=== PATIENT | female | born 1990 | race Caucasian/White ===

== ENCOUNTER → 2016-12-13 | Day surgery (SDC) | payer OTHER ==
[2016-12-09 09:24] VITALS: BMI 38.7
[~2016-12-13] MED LIST: LACTATED RINGERS 1,000 ML IV ONE; LIDOCAINE 1% 20 ML VIAL (10MG/ML) FOR IV START INTRADERMA ONE; LIDOCAINE 1% INJ 10MG/ML (20 ML MDV) ONE; PROPOFOL 10 MG/ML 20 ML VIAL IV ONE
[2016-12-13 08:09] VITALS: RESP 16; TEMP 98.2
[2016-12-13 08:27] LABS: Glucose,Whole Blood 88 mg/dL (75-99)
--- NOTE | 2016-12-13 09:01 | P.GSHP ---
History of Present Illness H&P Date: 12/13/16 Chief Complaint: Nausea, epigastric pain This is a 26-year-old female for penny Singh. Patient had complaints of nausea and epigastric pain. She presents today for EGD. Past Medical History Past Medical History: Diabetes Mellitus Additional Past Medical History / Comment(s): STATES HAVING PAIN IN STOMACH AND NAUSEA. History of Any Multi-Drug Resistant Organisms: None Reported Past Surgical History: Section, Tubal Ligation Past Anesthesia/Blood Transfusion Reactions: No Reported Reaction Past Psychological History: Anxiety, Bipolar, Depression Smoking Status: Current every day smoker Past Alcohol Use History: Occasional Additional Past Alcohol Use History / Comment(s): HX OF 2 PPD SMOKER, CURRENTLY 6 CIGARETTES /DAY., SMOKING FOR 12 YEARS. Past Drug Use History: None Reported - Past Family History Mother Family Medical History: No Reported History Medications and Allergies Home Medications Medication Instructions Recorded Confirmed Type ARIPiprazole [Abilify] 2 mg PO HS 12/09/16 12/13/16 History [place] Carbonate 300 mg PO HS 12/09/16 12/13/16 History buPROPion XL [Wellbutrin Xl] 150 mg PO DAILY 12/09/16 12/13/16 History lamoTRIgine [LaMICtal] 100 mg PO BID 12/09/16 12/13/16 History metFORMIN HCL [Glucophage] 1,000 mg PO TID-W/MEALS 12/09/16 12/13/16 History Allergies Allergy/AdvReac Type Severity Reaction Status Date / Time No Known Allergies Allergy Verified 12/13/16 08:09 Surgical - Exam Vital Signs Temp Pulse Resp BP Pulse Ox 98.2 F 77 16 120/65 95 12/13/16 08:08 12/13/16 08:08 12/13/16 08:08 12/13/16 08:08 12/13/16 08:08 - General well developed, no distress - Eyes PERRL - ENT normal pinna - Neck no masses - Respiratory normal expansion - Cardiovascular Rhythm: regular - Abdomen Abdomen: soft, non tender Assessment and Plan Plan: Nausea Epigastric pain We will perform EGD.
--- NOTE | 2016-12-13 09:05 | P.OP ---
Date of Procedure: 12/13/16 Preoperative Diagnosis: Epigastric pain Nausea Postoperative Diagnosis: Antral gastritis No evidence of hiatal hernia Mild esophagitis Procedure(s) Performed: EGD Anesthesia: MAC Surgeon: Jabari Boyd Pathology: other (Antrum, esophagus) Condition: stable Disposition: PACU Description of Procedure: Patient's placed on the endoscopy table in the lateral position. She received IV sedation. The gastroscope placed oropharynx passed in the esophagus into the stomach. The scope was then placed through the pylorus. The first and second portion of the duodenum appeared normal. The scope was then brought back the antrum and this appeared mildly inflamed. A biopsies performed. Scope was unretroflexed and remainder of the stomach appeared normal. The GE junction was at 40 cm. There is no evidence of a hiatal hernia. The distal esophagus appeared minimally inflamed a biopsies performed. The proximal esophagus appeared normal. Scope was withdrawn for patient.
[2016-12-13 09:43] VITALS: BP 128/78; PULSE 83
--- NOTE | 2016-12-13 15:03 | NM ---
Nuclear medicine hepatobiliary scan. HISTORY: Pain. DOSAGE: The patient received 8 ounces and sure plus and 5.5 mCi of Technetium 99m Choletec. FINDINGS: There is normal hepatic extraction. The gallbladder is seen by 20 minutes. Ejection fract ion is 89%. IMPRESSION: 1. Normal hepatobiliary exam 2. Ejection fraction of 89% which can be associated with hyperdynamic gallbladder. Correlate clinical ly.
== END ==
LOC: ORWHC2ENDO 07:50
PROVIDERS: ATTEND Surgery
DX: K29.50 Unspecified chronic gastritis without bleeding (principal); E11.9 Type 2 diabetes mellitus without complications; K20.9 Esophagitis, unspecified; F17.210 Nicotine dependence, cigarettes, uncomplicated; F41.9 Anxiety disorder, unspecified; F31.30 Bipolar disorder, current episode depressed, mild or moderate severity, unspecified; E66.9 Obesity, unspecified; Z68.38 Body mass index [BMI] 38.0-38.9, adult; Z79.84 Long term (current) use of oral hypoglycemic drugs; Z79.899 Other long term (current) drug therapy
CPT/HCPCS: 43239; 81025; 88305; 88342; 78226; A9537; J2001; J2704

== ENCOUNTER 2016-12-28 07:50 | Day surgery (SDC) | payer OTHER ==
[2016-12-26 14:38] VITALS: BMI 38.0
[~2016-12-28 07:50] MED LIST changes: +DEXAMETHASONE SOD PHOSPHATE 10 MG/ML 1 ML VIAL IV ONE; +HEPARIN SODIUM,PORCINE 5,000 UNIT/ML 1 ML VIAL SQ ONE; -LACTATED RINGERS 1,000 ML IV ONE; +LACTATED RINGERS 1,000 ML IV SCH; -LIDOCAINE 1% 20 ML VIAL (10MG/ML) FOR IV START INTRADERMA ONE; +LIDOCAINE 1% 20 ML VIAL (10MG/ML) FOR IV START INTRADERMA PRN; -LIDOCAINE 1% INJ 10MG/ML (20 ML MDV) ONE; +MIDAZOLAM 2 MG/2 ML VIAL IV PRN; -PROPOFOL 10 MG/ML 20 ML VIAL IV ONE; +SCOPOLAMINE 1.5MG/72HR PATCH TRANSDERM ONE; +ceFAZolin 2 GM in SODIUM CHLORIDE 0.9% 100 ML IVPB ONE
[2016-12-28 08:24] LABS: Glucose,Whole Blood 91 mg/dL (75-99)
[2016-12-28] MEDS: ONDANSETRON 4 MG/2 ML VIAL IVP ONE ×2 (08:24→11:02)
--- NOTE | 2016-12-28 09:33 | P.GSHP ---
History of Present Illness H&P Date: 12/28/16 Chief Complaint: Right upper quadrant pain This a 26-year-old female referred from Dr. Elizabeth Singh. Patient rents today for laparoscopic cholecystectomy. She's had complaints of upper quadrant pain. Her recent HIDA scan shows elevated ejection fraction of 89% consistent with biliary dyskinesia. Past Medical History Past Medical History: Diabetes Mellitus Additional Past Medical History / Comment(s): STATES HAVING PAIN IN STOMACH AND NAUSEA. History of Any Multi-Drug Resistant Organisms: None Reported Past Surgical History: Section, Tubal Ligation Additional Past Surgical History / Comment(s): EGD,ERCP Past Anesthesia/Blood Transfusion Reactions: No Reported Reaction Smoking Status: Current every day smoker - Past Family History Mother Family Medical History: No Reported History Medications and Allergies Home Medications Medication Instructions Recorded Confirmed Type ARIPiprazole [Abilify] 2 mg PO HS 12/09/16 12/28/16 History [place] Carbonate 300 mg PO HS 12/09/16 12/28/16 History buPROPion XL [Wellbutrin Xl] 150 mg PO DAILY 12/09/16 12/28/16 History lamoTRIgine [LaMICtal] 100 mg PO BID 12/09/16 12/28/16 History metFORMIN HCL [Glucophage] 1,000 mg PO TID-W/MEALS 12/09/16 12/28/16 History Allergies Allergy/AdvReac Type Severity Reaction Status Date / Time No Known Allergies Allergy Verified 12/26/16 14:33 Surgical - Exam Vital Signs Temp Pulse Resp BP Pulse Ox 98.1 F 78 16 121/73 97 12/28/16 08:02 12/28/16 08:02 12/28/16 08:02 12/28/16 08:02 12/28/16 08:02 - General well developed, no distress - Eyes PERRL - ENT normal pinna - Respiratory normal expansion - Cardiovascular Rhythm: regular - Abdomen Abdomen: soft, non tender Assessment and Plan Assessment: Right upper quadrant pain Abnormal HIDA scan We'll perform laparoscopic cholecystectomy.
[2016-12-28] MEDS ORDERED: MIDAZOLAM 2 MG/2 ML VIAL ONE (09:41)
[2016-12-28] MEDS ORDERED: SUCCINYLCHOLINE CHLORIDE 100 MG/5 ML SYR IV ONE (09:41)
[2016-12-28] MEDS ORDERED: fentaNYL (PF) 50 MCG/ML 2 ML AMP ONE (09:41)
[2016-12-28] MEDS ORDERED: PROPOFOL 10 MG/ML 20 ML VIAL IV ONE (09:41)
[2016-12-28] MEDS ORDERED: GLYCOPYRROLATE 0.2 MG/ML 2 ML VIAL ONE (09:41)
[2016-12-28] MEDS ORDERED: NEOSTIGMINE 1 MG/ML 10 ML VIAL ONE (09:41)
[2016-12-28] MEDS ORDERED: ROCURONIUM BROMIDE 10 MG/ML 10 ML VIAL IV ONE (09:41)
[2016-12-28] MEDS ORDERED: KETOROLAC 30 MG/ML 1 ML VIAL ONE (09:41)
[2016-12-28] MEDS ORDERED: BUPIVACAIN-EPI 0.5%-1:200,000 30 ML VIAL SQ ONE ×2 (10:03→10:19)
--- NOTE | 2016-12-28 10:36 | P.OP ---
Date of Procedure: 12/28/16 Preoperative Diagnosis: Chronic cholecystitis Postoperative Diagnosis: Chronic cholecystitis Procedure(s) Performed: Laparoscopic cholecystectomy Anesthesia: IRENE Surgeon: Jabari Boyd Estimated Blood Loss (ml): 5 Pathology: other (Gallbladder) Condition: stable Disposition: PACU Description of Procedure: The patient was placed on the operating table. The patient received a general endotracheal tube anesthesia. The patients abdomen was prepped and draped in the usual sterile fashion. Through an infraumbilical stab incision, the fascia of the anterior abdominal wall was grasped with a pair of Kochers and then the Veress needle was placed in the peritoneal cavity. Position of the Veress needle was confirmed with positive drop test. The abdomen was then insufflated. After adequate insufflation, the 10 mm trocar was placed in the peritoneal cavity. Following this the laparoscope was placed in the peritoneal cavity. The patient was placed in the head-up, right side up position and then a 5 mm trocar was placed in the right lateral and right subcostal position under direct visualization. A 8 mm trocar was placed in the epigastric position. The gallbladder was grasped in the fundus and infundibulum. Traction on the gallbladder was placed in the lateral and the cephalad positions. The triangle of Calot was visualized.. The cystic duct was bluntly dissected until the union of the cystic duct and common bile duct was seen. The cystic duct was then divided and sealed with the Harmonic scissors. A PDS Endoloop was then placed throughout the cystic duct stump. The cystic artery divided and sealed with the Harmonic scissors. The gallbladder was then removed from the liver bed using Harmonic scissors. The gallbladder was then extracted through the epigastric port site. Operative field was checked for any bleeding spots and Harmonic scissors was used to coagulate the liver bed. The abdomen was irrigated. The trocars were removed. The skin was closed using interrupted 3-0 Vicryl suture. Dermabond dressing were applied. The patient tolerated the procedure well.
[2016-12-28 10:55] VITALS: TEMP 97.4
[2016-12-28] MEDS: HYDROmorphone 0.5 MG/0.5 ML SYRINGE IVP PRN ×2 (11:02→11:08)
[2016-12-28] MEDS ORDERED: HYDROcodone/APAP 7.5-325MG 1 EACH TAB PO ONE (12:00)
[2016-12-28 13:06] VITALS: BP 105/70; PULSE 73; RESP 18
== END 2016-12-28 13:08 | disposition home or self-care (01) ==
LOC: OR 07:50
PROVIDERS: ATTEND Surgery
DX: K80.10 Calculus of gallbladder with chronic cholecystitis without obstruction (principal); E11.9 Type 2 diabetes mellitus without complications; Z98.51 Tubal ligation status; F31.9 Bipolar disorder, unspecified; F17.200 Nicotine dependence, unspecified, uncomplicated; Z79.84 Long term (current) use of oral hypoglycemic drugs; Z79.899 Other long term (current) drug therapy
CPT/HCPCS: 81025; 88304; 47562; J2250; J1644; J1100; J2710; J0690; J2405; J3010; J1885; J0330; J2704; J1170

== ENCOUNTER 2017-12-13 13:40 | Emergency (ER) | payer OTHER ==
[2017-12-13 13:56] VITALS: RESP 18; TEMP 98.2
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
[2017-12-13 15:15] VITALS: BP 114/62; PULSE 76
== END 2017-12-13 15:15 | disposition home or self-care (01) ==
LOC: EC 13:40
DX: S13.4XXA Sprain of ligaments of cervical spine, initial encounter (principal); R51 Headache; E11.9 Type 2 diabetes mellitus without complications; F41.9 Anxiety disorder, unspecified; F32.9 Major depressive disorder, single episode, unspecified; F17.200 Nicotine dependence, unspecified, uncomplicated; Z79.84 Long term (current) use of oral hypoglycemic drugs; Z79.899 Other long term (current) drug therapy; V89.2XXA Person injured in unspecified motor-vehicle accident, traffic, initial encounter; Y92.89 Other specified places as the place of occurrence of the external cause
CPT/HCPCS: 70450; 72125; 99284

== ENCOUNTER → 2018-12-13 | Outpatient (CLI) | payer OTHER ==
[2018-12-13 20:05] LABS: African American GFR (CKD) 115.5 (60.0-200.0); Lithium 0.2 mmol/L (0.5-1.2)
[2018-12-13 20:08] LABS: T4, Free (Free Thyroxine) 1.3 ng/dL (0.80-1.80)
== END | disposition home or self-care (01) ==
LOC: LABWHC1 08:57
PROVIDERS: ATTEND Psychiatry & Neurology Psychiatry
DX: F31.75 Bipolar disorder, in partial remission, most recent episode depressed (principal)
CPT/HCPCS: 36415; 80178; 82565; 84439; 84443; 84520

== ENCOUNTER 2023-07-03 06:51 | Emergency (ER) | payer OTHER ==
--- NOTE | 2023-07-03 07:31 | ED ---
Abdominal Pain HPI - General Chief Complaint: Abdominal Pain Stated Complaint: Kidney pain Time Seen by Provider: 07/03/23 07:03 Source: patient, RN notes reviewed Mode of arrival: ambulatory Limitations: no limitations - History of Present Illness Initial Comments: 32-year-old female presents emergency department chief complaint of left flank pain. Patient states that started suddenly few hours ago. Nothing makes pain feel better or worse. Patient states it is in front of her abdomen and back. She has no history of kidney stones denies any dysuria no hematuria no change in bowel habits including melena or hematochezia. She denies history of d iverticulitis. Patient denies fevers chest pain shortness of breath. Has had a prior cholecystectomy no other abdominal surgeries denies chance of . - Related Data Home Medications Medication Instructions Recorded Confirmed ARIPiprazole [Abilify] 2 mg PO HS 12/09/16 12/28/16 [place] Carbonate 300 mg PO HS 12/09/16 12/28/16 buPROPion XL [Wellbutrin Xl] 150 mg PO DAILY 12/09/16 12/28/16 lamoTRIgine [LaMICtal] 100 mg PO BID 12/09/16 12/28/16 metFORMIN HCL [Glucophage] 1,000 mg PO TID-W/MEALS 12/09/16 12/28/16 Previous Rx's Medication Instructions Recorded Docusate [Colace] 100 mg PO BID #20 capsule 12/28/16 HYDROcodone/APAP 7.5-325MG [[place] 1 each PO Q4H PRN #30 tab 12/28/16 7.5] Cephalexin [Keflex] 500 mg PO Q6HR #40 cap 07/03/23 Ibuprofen [Motrin] 600 mg PO Q8HR PRN #20 tab 07/03/23 Ondansetron Odt [Zofran Odt] 4 mg PO Q8HR PRN #10 tab 07/03/23 Allergies Allergy/AdvReac Type Severity Reaction Status Date / Time No Known Allergies Allergy Verified 07/03/23 07:12 Review of Systems ROS Statement: Those systems with pertinent positive or pertinent negative responses have been documented in the HPI. ROS Other: All systems not noted in ROS Statement are negative. Past Medical History Past Medical History: Diabetes Mellitus Additional Past Medical History / Comment(s): STATES HAVING PAIN IN STOMACH AND NAUSEA. History of Any Multi-Drug Resistant Organisms: None Reported Past Surgical History: Section, Tubal Ligation Additional Past Surgical History / Comment(s): EGD,ERCP Past Anesthesia/Blood Transfusion Reactions: No Reported Reaction Past Psychological History: Anxiety, Bipolar, Depression Smoking Status: Never smoker Past Alcohol Use History: Occasional Past Drug Use History: Marijuana - Past Family History Mother Family Medical History: No Reported History General Exam Limitations: no limitations General appearance: alert, in no apparent distress Head exam: Present: atraumatic, normocephalic, normal inspection Eye exam: Present: normal appearance, PERRL, EOMI. Absent: scleral icterus, conjunctival injection, periorbital swelling Respiratory exam: Present: normal lung sounds bilaterally. Absent: respiratory distress, wheezes, rales, rhonchi, stridor Cardiovascular Exam: Present: regular rate, normal rhythm, normal heart sounds. Absent: systolic murmur, diastolic murmur, rubs, gallop, clicks GI/Abdominal exam: Present: soft, tenderness, normal bowel sounds. Absent: distended, guarding, rebound, rigid Back exam: Present: CVA tenderness (L) (Minimal). Absent: CVA tenderness (R) Neurological exam: Present: alert Skin exam: Present: warm, dry, intact, normal color. Absent: rash Course Vital Signs 07/03/23 07/03/23 07:10 09:48 Temperature 99.1 F 98.1 F Pulse Rate 90 78 Respiratory 20 18 Rate Blood Pressure 134/85 131/67 O2 Sat by Pulse 96 98 Oximetry Medical Decision Making - Medical Decision Making Was pt. sent in by a medical professional or institution (, PA, REPRODUCTIVE SURGEON, urgent care, hospital, or long term...) When possible be specific @ -No Did you speak to anyone other than the patient for history (EMS, parent, family, police, friend...)? What history was obtained from this source @ -No Did you review nursing and triage notes (agree or disagree)? Why? @ -I reviewed and agree with nursing and triage notes Were old charts reviewed (outside hosp., previous admission, EMS record, old EKG, old radiological studies, urgent care reports/EKG's, long term records)? Report findings @ -No old charts were reviewed Differential Diagnosis (chest pain, altered mental status, abdominal pain women, abdominal pain men, vaginal bleeding, weakness, fever, dyspnea, syncope, headache, dizziness, GI bleed, back pain, seizure, CVA, palpatations, mental health, musculoskeletal)? @ -Differential Abdominal Pain Women: Appendicitis, Cholecystitis, diverticulosis, ischemic bowel, pancreatitis, hepatitis, UTI, gastroenteritis, AAA, incarcerated hernia, bowel obstruction, constipation, inflammatory bowel, hepatitis, peptic ulcer disease, splenic infarction, perforated viscus, vulvitis, ovarian torsion, PID, kidney stone, placenta abruption, this is not meant to be an all-inclusive list EKG interpreted by me (3pts min.). @ -None X-rays interpreted by me (1pt min.). @ -None done CT interpreted by me (1pt min.). @ -CT to the abdomen pelvis showing evidence of kidney stone in the left otherwise no obstructing or acute process U/S interpreted by me (1pt. min.). @ -None done What testing was considered but not performed or refused? (CT, X-rays, U/S, labs)? Why? @ -None What meds were considered but not given or refused? Why? @ -None Did you discuss the management of the patient with other professionals (professionals i.e. , PA, REPRODUCTIVE SURGEON, lab, RT, psych nurse, director of social work, block sawyer, teacher, bank operations officer, case advocate)? Give summary @ -No Was smoking cessation discussed for >3mins.? @ -No Was critical care preformed (if so, how long)? @ -No Were there social determinants of health that impacted care today? How? (Ho melessness, low income, unemployed, alcoholism, drug addiction, transportation, low edu. Level, literacy, decrease access to med. care, prison, rehab)? @ -No Was there de-escalation of care discussed even if they declined (Discuss DNR or withdrawal of care, Hospice)? DNR status @ -No What co-morbidities impacted this encounter? (DM, HTN, Smoking, COPD, CAD, Cancer, CVA, ARF, Chemo, Hep., AIDS, mental health diagnosis, sleep apnea, morbid obesity)? @ -None Was patient admitted / discharged? Hospital course, mention meds given and route, prescriptions, significant lab abnormalities, going to OR and other pertinent info. @ -Discharged patient pain is improved patient may have passed a stone she does have a stone that is nonobstructing patient agrees with plan discharge and close follow-up. Undiagnosed new problem with uncertain prognosis? @ -No Drug Therapy requiring intensive monitoring for toxicity (Heparin, Nitro, Insulin, Cardizem)? @ -No Were any procedures done? @ -No Diagnosis/symptom? @ -Left flank pain Acute, or Chronic, or Acute on Chronic? @ -Acute Uncomplicated (without systemic symptoms) or Complicated (systemic symptoms)? @ -Uncomplicated Side effects of treatment? @ -No Exacerbation, Progression, or Severe Exacerbation? @ -No Poses a threat to life or bodily function? How? (Chest pain, [place], [place], pneumonia, PE, COPD, DKA, ARF, appy, cholecystitis, CVA, Diverticulitis, Homicidal, Suicidal, threat to staff... and all critical care pts) @ -No - Lab Data Result diagrams: 07/03/23 07:50 07/03/23 07:50 Lab Results 07/03/23 07/03/23 07/03/23 Range/Units 07:50 07:50 07:50 WBC 17.3 H (3.8-10.6) k/uL RBC 4.58 (3.80-5.40) m/uL Hgb 14.6 (11.4-16.0) gm/dL Hct 43.3 (34.0-46.0) % MCV 94.4 (80.0-100.0) fL MCH 31.9 (25.0-35.0) pg MCHC 33.8 (31.0-37.0) g/dL RDW 11.8 (11.5-15.5) % Plt Count 307 (150-450) k/uL MPV 7.5 Neutrophils % 88 % Lymphocytes % 7 % Monocytes % 4 % Eosinophils % 0 % Basophils % 0 % Neutrophils # 15.1 H (1.3-7.7) k/uL Lymphocytes # 1.2 (1.0-4.8) k/uL Monocytes # 0.7 (0-1.0) k/uL Eosinophils # 0.0 (0-0.7) k/uL Basophils # 0.0 (0-0.2) k/uL Sodium (137-145) mmol/L Potassium (3.5-5.1) mmol/L Chloride (98-107) mmol/L Carbon Dioxide (22-30) mmol/L Anion Gap mmol/L BUN (7-17) mg/dL Creatinine (0.52-1.04) mg/dL Est GFR (CKD-EPI)AfAm (>60 ml/min/1.73 sqM) Est GFR (CKD-EPI)NonAf (>60 ml/min/1.73 sqM) Glucose (74-99) mg/dL Calcium (8.4-10.2) mg/dL Total Bilirubin (0.2-1.3) mg/dL AST (14-36) U/L ALT (4-34) U/L Alkaline Phosphatase (38-126) U/L Total Protein (6.3-8.2) g/dL Albumin (3.5-5.0) g/dL Lipase (23-300) U/L Urine Color Light Yellow Urine Appearance Cloudy H (Clear) Urine pH 7.0 (5.0-8.0) Ur Specific [place] 1.018 (1.001-1.035) Urine Protein Trace H (Negative) Urine Glucose (UA) Negative (Negative) Urine Ketones 2+ H (Negative) Urine Blood Trace H (Negative) Urine Nitrite Negative (Negative) Urine Bilirubin Negative (Negative) Urine Urobilinogen <2.0 (<2.0) mg/dL Ur Leukocyte Esterase Large H (Negative) Urine RBC 2 (0-5) /hpf Urine WBC 49 H (0-5) /hpf Urine WBC Clumps Few H (None) /hpf Ur Squamous Epith Cells 3 (0-4) /hpf Urine Bacteria Occasional H (None) /hpf Urine Mucus Rare H (None) /hpf Urine HCG, Qual Not Detected (Not Detectd) 07/03/23 Range/Units 07:50 WBC (3.8-10.6) k/uL RBC (3.80-5.40) m/uL Hgb (11.4-16.0) gm/dL Hct (34.0-46.0) % MCV (80.0-100.0) fL MCH (25.0-35.0) pg MCHC (31.0-37.0) g/dL RDW (11.5-15.5) % Plt Count (150-450) k/uL MPV Neutrophils % % Lymphocytes % % Monocytes % % Eosinophils % % Basophils % % Neutrophils # (1.3-7.7) k/uL Lymphocytes # (1.0-4.8) k/uL Monocytes # (0-1.0) k/uL Eosinophils # (0-0.7) k/uL Basophils # (0-0.2) k/uL Sodium 136 L (137-145) mmol/L Potassium 4.3 (3.5-5.1) mmol/L Chloride 103 (98-107) mmol/L Carbon Dioxide 26 (22-30) mmol/L Anion Gap 7 mmol/L BUN 9 (7-17) mg/dL Creatinine 0.71 (0.52-1.04) mg/dL Est GFR (CKD-EPI)AfAm >90 (>60 ml/min/1.73 sqM) Est GFR (CKD-EPI)NonAf >90 (>60 ml/min/1.73 sqM) Glucose 129 H (74-99) mg/dL Calcium 9.7 (8.4-10.2) mg/dL Total Bilirubin 0.7 (0.2-1.3) mg/dL AST 28 (14-36) U/L ALT 27 (4-34) U/L Alkaline Phosphatase 87 (38-126) U/L Total Protein 7.4 (6.3-8.2) g/dL Albumin 4.6 (3.5-5.0) g/dL Lipase 39 (23-300) U/L Urine Color Urine Appearance (Clear) Urine pH (5.0-8.0) Ur Specific [place] (1.001-1.035) Urine Protein (Negative) Urine Glucose (UA) (Negative) Urine Ketones (Negative) Urine Blood (Negative) Urine Nitrite (Negative) Urine Bilirubin (Negative) Urine Urobilinogen (<2.0) mg/dL Ur Leukocyte Esterase (Negative) Urine RBC (0-5) /hpf Urine WBC (0-5) /hpf Urine WBC Clumps (None) /hpf Ur Squamous Epith Cells (0-4) /hpf Urine Bacteria (None) /hpf Urine Mucus (None) /hpf Urine HCG, Qual (Not Detectd) Disposition Clinical Impression: Pyelonephritis Disposition: HOME SELF-CARE Condition: Stable Instructions (If sedation given, give patient instructions): Kidney Infection (ED) Additional Instructions: Please return to the Emergency Department if symptoms worsen or any other concerns. Prescriptions: Cephalexin [Keflex] 500 mg PO Q6HR #40 cap Ibuprofen [Motrin] 600 mg PO Q8HR PRN #20 tab PRN Reason: Pain Ondansetron Odt [Zofran Odt] 4 mg PO Q8HR PRN #10 tab PRN Reason: Nausea Is patient prescribed a controlled substance at d/c from ED?: No Referrals: Elizabeth Singh DO [Primary Care Provider] - 1-2 days Time of Disposition: 09:28
[2023-07-03] MEDS: ONDANSETRON 4 MG/2 ML VIAL IVP STA (07:46)
[2023-07-03] MEDS: SODIUM CHLORIDE 0.9% 500 ML 500 ML IV STA (07:47)
[2023-07-03] MEDS: SODIUM CHLORIDE 0.9% 1,000 ML IV STA (07:48)
[2023-07-03] MEDS: KETOROLAC 15 MG/ML 1 ML VIAL IVP STA (07:51)
[2023-07-03] MEDS: HYDROmorphone 0.5 MG/0.5 ML SYRINGE IVP STA (07:52)
[2023-07-03 08:09] LABS: Basophils % (A) 0 %; Eosinophils % (A) 0 %; HCT 43.3 % (34.0-46.0); HGB 14.6 gm/dL (11.4-16.0); Lymphocytes # (A) 1.2 k/uL (1.0-4.8); Lymphocytes % (A) 7 %; MCH 31.9 pg (25.0-35.0); MCHC 33.8 g/dL (31.0-37.0); MCV 94.4 fL (80.0-100.0); Mean Platelet Volume 7.5; Monocytes # (A) 0.7 k/uL (0-1.0); Monocytes % (A) 4 %; Neutrophils # (A) 15.1 k/uL (1.3-7.7); Neutrophils % (A) 88 %; Platelet Count 307 k/uL (150-450); RBC 4.58 m/uL (3.80-5.40); RDW 11.8 % (11.5-15.5); WBC 17.3 k/uL (3.8-10.6)
[2023-07-03 08:20] LABS: ALT 27 U/L (4-34); AST 28 U/L (14-36); African American GFR (CKD) >90 (>60 ml/min/1.73 sqM); Albumin 4.6 g/dL (3.5-5.0); Alkaline Phosphatase 87 U/L (38-126); Anion Gap 7 mmol/L; Blood Urea Nitrogen 9 mg/dL (7-17); Calcium 9.7 mg/dL (8.4-10.2); Carbon Dioxide 26 mmol/L (22-30); Chloride 103 mmol/L (98-107); Glucose 129 mg/dL (74-99); Lipase 39 U/L (23-300); Non-African American GFR(CKD) >90 (>60 ml/min/1.73 sqM); Potassium 4.3 mmol/L (3.5-5.1); Sodium 136 mmol/L (137-145); Total Bilirubin 0.7 mg/dL (0.2-1.3); Total Protein 7.4 g/dL (6.3-8.2)
[2023-07-03 08:24] LABS: Appearance,Urine Cloudy (Clear); Bacteria,Urine Occasional /hpf; Bilirubin,Urine Negative (Negative); Blood,Urine Trace (Negative); Color,Urine Light Yellow; Glucose,Urine (UA) Negative (Negative); Ketones,Urine 2+ (Negative); Leukocyte Esterase,Urine Large (Negative); Mucus,Urine Rare /hpf; Nitrite,Urine Negative (Negative); Protein,Urine Trace (Negative); RBC,Urine 2 /hpf (0-5); Specific Gravity,Urine 1.018 (1.001-1.035); Squamous Epithelial Cell,Urine 3 /hpf (0-4); Urobilinogen,Urine <2.0 mg/dL (<2.0); WBC,Urine 49 /hpf (0-5)
--- NOTE | 2023-07-03 09:09 | CT ---
EXAMINATION TYPE: CT abdomen pelvis w con DATE OF EXAM: 07/03/2023 COMPARISON: None HISTORY: 32-year-old female Left side abdominal pain with nausea since midnight TECHNIQUE: Contiguous axial scanning of the abdomen and pelvis following administration of 100 ml Iso rayo 300 IV contrast. Delayed images through the kidneys and coronal/sagittal reconstructions perform ed. CT DLP: 1849.6 mGycm Automated exposure control for dose reduction was used. FINDINGS: LUNG BASES: No significant abnormality is appreciated. LIVER/GB: Mildly enlarged at 18.4 cm with diminished attenuation. No focal lesion seen. Portal venous system is patent. No biliary ductal dilatation. Gallbladder surgically absent. PANCREAS: No significant abnormality is seen. SPLEEN: Enlarged at 15.0 cm measured on transverse series. ADRENALS: No significant abnormality is seen. KIDNEYS: There are a couple cysts measuring 4.7 and 1.1 cm and the left kidney. In addition, there is patchy inhomogeneous enhancement especially upper and mid left kidney. Minimal perinephric stranding on the left. Symmetric uptake and excretion of contrast from the kidneys without hydronephrosis. BOWEL: Some prominent fluid-filled small bowel loops right lower quadrant probably transient. Normal appendix. No significant stool burden. No pericolonic inflammatory change. LYMPH NODES: No greater than 1cm abdominal or pelvic lymph nodes are appreciated. PELVIS: Bladder only partially distended but with moderate circumferential wall thickening. Uterus an teverted. Left periuterine varices. Both ovaries are visualized. Trace pelvic free fluid. Multiple pe lvic phlebolith. No pelvic lymphadenopathy seen. OSSEOUS STRUCTURES: No significant abnormality is seen. OTHER: No significant additional abnormality is seen. IMPRESSION: 1. PATCHY INHOMOGENEOUS ENHANCEMENT UPPER AND MID LEFT KIDNEY WITH MINIMAL PERINEPHRIC STRANDING. COR RELATE FOR UNDERLYING PYELONEPHRITIS. AN INCIDENTAL 4.7 CM CYST OF THE LEFT KIDNEY. 2. MODERATE CIRCUMFERENTIAL BLADDER WALL THICKENING. CORRELATE TO EXCLUDE CYSTITIS. 3. HEPATOSPLENOMEGALY (LIVER 18.4 CM AND SPLEEN 15.0 CM). AT LEAST MILD HEPATIC STEATOSIS.
[2023-07-03] MEDS: cefTRIAXone IN SWFI 1,000 MG/10 ML SYRINGE IVP STA (09:44)
[2023-07-03] MEDS: ACET/COD 300 MG/30 MG STARTER PACK 6 TAB BTL PO STA (09:45)
[2023-07-03 09:53] VITALS: BP 131/67; PULSE 78; RESP 18; TEMP 98.1
== END 2023-07-03 09:49 | disposition home or self-care (01) ==
LOC: EC 06:51
DX: N20.0 Calculus of kidney (principal)
CPT/HCPCS: 36415; 80053; 83690; 85025; 81001; 81025; 74177; 99284; 96374; 96375 ×3; 96361; J2405; J0696; J1885; J1170; Q9967

== ENCOUNTER 2023-07-06 14:17 | Emergency (ER) | payer OTHER ==
[2023-07-06 14:44] VITALS: RESP 18
--- NOTE | 2023-07-06 15:10 | ED ---
General Adult HPI - General Chief complaint: Urogenital Stated complaint: blood in urine Time Seen by Provider: 07/06/23 14:35 Source: patient, RN notes reviewed Mode of arrival: ambulatory Limitations: no limitations - History of Present Illness Initial comments: This is a 32-year-old female who presents emergency department complaint of hematuria. Patient states that she was seen in the emergency department on 07/02 she was diagnosed with pyelonephritis and discharged home on an antibiotic and Zofran as needed. Patient states that she has noticed hematuria this morning and was instructed to follow up if she notices blood in her urine. Patient s tates that she had a fever last night of 100.2 degrees. She denies nausea, vomiting, abdominal pain, dysuria, back or flank pain. Patient has been cycling tyelnol and motrin at home with her last dose of tylenol yesterday evening and today a dose of motrin 650 at 1500. - Related Data Home Medications Medication Instructions Recorded Confirmed ARIPiprazole [Abilify] 2 mg PO HS 12/09/16 12/28/16 [place] 300 mg PO HS 12/09/16 12/28/16 buPROPion XL [Wellbutrin Xl] 150 mg PO DAILY 12/09/16 12/28/16 lamoTRIgine [LaMICtal] 100 mg PO BID 12/09/16 12/28/16 metFORMIN HCL [Glucophage] 1,000 mg PO TID-W/MEALS 12/09/16 12/28/16 Previous Rx's Medication Instructions Recorded Docusate [Colace] 100 mg PO BID #20 capsule 12/28/16 HYDROcodone/APAP 7.5-325MG [[place] 1 each PO Q4H PRN #30 tab 12/28/16 7.5] Cephalexin [Keflex] 500 mg PO Q6HR #40 cap 07/03/23 Ibuprofen [Motrin] 600 mg PO Q8HR PRN #20 tab 07/03/23 Ondansetron Odt [Zofran Odt] 4 mg PO Q8HR PRN #10 tab 07/03/23 Allergies Allergy/AdvReac Type Severity Reaction Status Date / Time No Known Allergies Allergy Verified 07/06/23 14:40 Review of Systems ROS Statement: Those systems with pertinent positive or pertinent negative responses have been documented in the HPI. ROS Other: All systems not noted in ROS Statement are negative. Past Medical History Past Medical History: Diabetes Mellitus Additional Past Medical History / Comment(s): STATES HAVING PAIN IN STOMACH AND NAUSEA. History of Any Multi-Drug Resistant Organisms: None Reported Past Surgical History: Section, Tubal Ligation Additional Past Surgical History / Comment(s): EGD,ERCP Past Anesthesia/Blood Transfusion Reactions: No Reported Reaction Past Psychological History: Anxiety, Bipolar, Depression Smoking Status: Never smoker Past Alcohol Use History: Occasional Past Drug Use History: Marijuana - Past Family History Mother Family Medical History: No Reported History General Exam Limitations: no limitations General appearance: alert, in no apparent distress Head exam: Present: atraumatic, normocephalic, normal inspection Eye exam: Present: normal appearance, PERRL, EOMI. Absent: scleral icterus, conjunctival injection, periorbital swelling ENT exam: Present: normal exam, mucous membranes moist Neck exam: Present: normal inspection. Absent: tenderness, meningismus, lymphadenopathy Respiratory exam: Present: normal lung sounds bilaterally. Absent: respiratory distress, wheezes, rales, rhonchi, stridor Cardiovascular Exam: Present: regular rate, normal rhythm, normal heart sounds. Absent: systolic murmur, diastolic murmur, rubs, gallop, clicks GI/Abdominal exam: Present: soft, tenderness (mild suprapubic), normal bowel sounds. Absent: distended, guarding, rebound, rigid Extremities exam: Present: normal inspection, full ROM, normal capillary refill. Absent: tenderness, pedal edema, joint swelling, calf tenderness Back exam: Present: normal inspection Neurological exam: Present: alert, oriented X3, CN II-XII intact Psychiatric exam: Present: normal affect, normal mood Skin exam: Present: warm, dry, intact, normal color. Absent: rash Course Vital Signs 07/06/23 07/06/23 07/06/23 14:35 16:13 16:30 Temperature 98.2 F 98.1 F Pulse Rate 77 72 Respiratory 18 18 Rate Blood Pressure 135/71 140/83 O2 Sat by Pulse 98 100 Oximetry Medical Decision Making - Medical Decision Making Was pt. sent in by a medical professional or institution (, PA, STUDENT ASSISTANT, urgent care, hospital, or intermediate...) When possible be specific @ -No Did you speak to anyone other than the patient for history (EMS, parent, family, police, friend...)? What history was obtained from this source @ -No Did you review nursing and triage notes (agree or disagree)? Why? @ -I reviewed and agree with nursing and triage notes Were old charts reviewed (outside hosp., previous admission, EMS record, old EKG, old radiological studies, urgent care reports/EKG's, intermediate records)? Report findings @ -Patient's previous laboratory results reviewed from 07/02 with elevated white blood cell count 17.3 and neutrophils of 15.1. Urinalysis remarkable for signs of infection. Patient CT scan reviewed and resulted with findings correlated with pyelonephritis. Differential Diagnosis (chest pain, altered mental status, abdominal pain women, abdominal pain men, vaginal bleeding, weakness, fever, dyspnea, syncope, headache, dizziness, GI bleed, back pain, seizure, CVA, palpatations, mental health, musculoskeletal)? @ -Differential Abdominal Pain Women: Appendicitis, Cholecystitis, diverticulosis, ischemic bowel, pancreatitis, hepatitis, UTI, gastroenteritis, AAA, incarcerated hernia, bowel obstruction, constipation, inflammatory bowel, hepatitis, peptic ulcer disease, splenic infarction, perforated viscus, vulvitis, ovarian torsion, PID, kidney stone, placenta abruption, this is not meant to be an all-inclusive list EKG interpreted by me (3pts min.). @ -none X-rays interpreted by me (1pt min.). @ -None done CT interpreted by me (1pt min.). @ -None done U/S interpreted by me (1pt. min.). @ -None done What testing was considered but not performed or refused? (CT, X-rays, U/S, labs)? Why? @ -None What meds were considered but not given or refused? Why? @ -None Did you discuss the management of the patient with other professionals (p rofessionals i.e. , PA, STUDENT ASSISTANT, lab, RT, psych nurse, criminal justice social worker, rotary soil stabilizer operator, teacher, chemical instrumentation officer, pillowcase folder)? Give summary @ -No Was smoking cessation discussed for >3mins.? @ -No Was critical care preformed (if so, how long)? @ -No Were there social determinants of health that impacted care today? How? (Homelessness, low income, unemployed, alcoholism, drug addiction, transportation, low edu. Level, literacy, decrease access to med. care, alf, rehab)? @ -No Was there de-escalation of care discussed even if they declined (Discuss DNR or withdrawal of care, Hospice)? DNR status @ -No What co-morbidities impacted this encounter? (DM, HTN, Smoking, COPD, CAD, Cancer, CVA, ARF, Chemo, Hep., AIDS, mental health diagnosis, sleep apnea, morbid obesity)? @ -None Was patient admitted / discharged? Hospital course, mention meds given and route, prescriptions, significant lab abnormalities, going to OR and other pertinent info. @ -Discharge. 32-year-old female with chief complaint of hematuria. On physical examination patient noted to have very mild send patient suprapubic region, bowel sounds normal there is no rigidity rebound tenderness noted. There is no noted CVA or flank pain on examination. Additionally patient denies nausea, vomiting, or fevers over the past few days. Patient given Tylenol for mild symptomatic relief. Additionally patient's laboratory results have mar kedly improved since previous on 07/02 revealing a nonelevated white blood cell count or increase in neutrophils. Patient's urinalysis still remarkable for signs of infection and elevated red blood cells. Patient's urine will be sent for culture and patient will be contacted if medications shall be switched. Recommend the patient continue on course of Keflex at home. Discussed strict return parameters. Spoke with Dr. Singh Undiagnosed new problem with uncertain prognosis? @ -No Drug Therapy requiring intensive monitoring for toxicity (Heparin, Nitro, Insulin, Cardizem)? @ -No Were any procedures done? @ -No Diagnosis/symptom? @ -peylonerhitis, hematuria Acute, or Chronic, or Acute on Chronic? @ -acute Uncomplicated (without systemic symptoms) or Complicated (systemic symptoms)? @ -uncomlicated Side effects of treatment? @ -No Exacerbation, Progression, or Severe Exacerbation? @ -No Poses a threat to life or bodily function? How? (Chest pain, [place], [place], pneumonia, PE, COPD, DKA, ARF, appy, cholecystitis, CVA, Diverticulitis, Homicidal, Suicidal, threat to staff... and all critical care pts) @ -No - Lab Data Result diagrams: 07/06/23 15:15 07/06/23 15:15 Lab Results 07/06/23 07/06/23 07/06/23 Range/Units 15:15 15:15 15:15 WBC 7.9 (3.8-10.6) k/uL RBC 4.24 (3.80-5.40) m/uL Hgb 13.2 (11.4-16.0) gm/dL Hct 40.4 (34.0-46.0) % MCV 95.4 (80.0-100.0) fL MCH 31.2 (25.0-35.0) pg MCHC 32.7 (31.0-37.0) g/dL RDW 11.7 (11.5-15.5) % Plt Count 349 (150-450) k/uL MPV 7.5 Neutrophils % 57 % Lymphocytes % 34 % Monocytes % 4 % Eosinophils % 2 % Basophils % 1 % Neutrophils # 4.5 (1.3-7.7) k/uL Lymphocytes # 2.7 (1.0-4.8) k/uL Monocytes # 0.3 (0-1.0) k/uL Eosinophils # 0.1 (0-0.7) k/uL Basophils # 0.0 (0-0.2) k/uL Sodium 141 (137-145) mmol/L Potassium 4.1 (3.5-5.1) mmol/L Chloride 109 H (98-107) mmol/L Carbon Dioxide 24 (22-30) mmol/L Anion Gap 8 mmol/L BUN 10 (7-17) mg/dL Creatinine 0.57 (0.52-1.04) mg/dL Est GFR (CKD-EPI)AfAm >90 (>60 ml/min/1.73 sqM) Est GFR (CKD-EPI)NonAf >90 (>60 ml/min/1.73 sqM) Glucose 87 (74-99) mg/dL Calcium 9.2 (8.4-10.2) mg/dL Total Bilirubin 0.3 (0.2-1.3) mg/dL AST 30 (14-36) U/L ALT 45 H (4-34) U/L Alkaline Phosphatase 99 (38-126) U/L Total Protein 6.7 (6.3-8.2) g/dL Albumin 4.0 (3.5-5.0) g/dL Urine Color Light Yellow Urine Appearance Cloudy H (Clear) Urine pH 6.5 (5.0-8.0) Ur Specific [place] 1.005 (1.001-1.035) Urine Protein 1+ H (Negative) Urine Glucose (UA) Negative (Negative) Urine Ketones Negative (Negative) Urine Blood Moderate H (Negative) Urine Nitrite Negative (Negative) Urine Bilirubin Negative (Negative) Urine Urobilinogen <2.0 (<2.0) mg/dL Ur Leukocyte Esterase Large H (Negative) Urine RBC 52 H (0-5) /hpf Urine WBC >182 H (0-5) /hpf Urine WBC Clumps Many H (None) /hpf Ur Squamous Epith Cells 4 (0-4) /hpf Urine Bacteria Few H (None) /hpf Urine Mucus Rare H (None) /hpf Urine HCG, Qual (Not Detectd) 07/06/23 Range/Units 15:32 WBC (3.8-10.6) k/uL RBC (3.80-5.40) m/uL Hgb (11.4-16.0) gm/dL Hct (34.0-46.0) % MCV (80.0-100.0) fL MCH (25.0-35.0) pg MCHC (31.0-37.0) g/dL RDW (11.5-15.5) % Plt Count (150-450) k/uL MPV Neutrophils % % Lymphocytes % % Monocytes % % Eosinophils % % Basophils % % Neutrophils # (1.3-7.7) k/uL Lymphocytes # (1.0-4.8) k/uL Monocytes # (0-1.0) k/uL Eosinophils # (0-0.7) k/uL Basophils # (0-0.2) k/uL Sodium (137-145) mmol/L Potassium (3.5-5.1) mmol/L Chloride (98-107) mmol/L Carbon Dioxide (22-30) mmol/L Anion Gap mmol/L BUN (7-17) mg/dL Creatinine (0.52-1.04) mg/dL Est GFR (CKD-EPI)AfAm (>60 ml/min/1.73 sqM) Est GFR (CKD-EPI)NonAf (>60 ml/min/1.73 sqM) Glucose (74-99) mg/dL Calcium (8.4-10.2) mg/dL Total Bilirubin (0.2-1.3) mg/dL AST (14-36) U/L ALT (4-34) U/L Alkaline Phosphatase (38-126) U/L Total Protein (6.3-8.2) g/dL Albumin (3.5-5.0) g/dL Urine Color Urine Appearance (Clear) Urine pH (5.0-8.0) Ur Specific [place] (1.001-1.035) Urine Protein (Negative) Urine Glucose (UA) (Negative) Urine Ketones (Negative) Urine Blood (Negative) Urine Nitrite (Negative) Urine Bilirubin (Negative) Urine Urobilinogen (<2.0) mg/dL Ur Leukocyte Esterase (Negative) Urine RBC (0-5) /hpf Urine WBC (0-5) /hpf Urine WBC Clumps (None) /hpf Ur Squamous Epith Cells (0-4) /hpf Urine Bacteria (None) /hpf Urine Mucus (None) /hpf Urine HCG, Qual Not Detected (Not Detectd) Disposition Clinical Impression: Hematuria, Pyelonephritis Narrative: Please return to the Emergency Department if symptoms worsen or any other concerns. Complete full course of antibiotics as prescribed. Disposition: HOME SELF-CARE Condition: Good Instructions (If sedation given, give patient instructions): Kidney Infection (ED) Is patient prescribed a controlled substance at d/c from ED?: No Referrals: Elizabeth Singh DO [Primary Care Provider] - 1-2 days Time of Disposition: 16:25
[2023-07-06 15:35] LABS: Basophils % (A) 1 %; Eosinophils # (A) 0.1 k/uL (0-0.7); Eosinophils % (A) 2 %; HCT 40.4 % (34.0-46.0); HGB 13.2 gm/dL (11.4-16.0); Lymphocytes # (A) 2.7 k/uL (1.0-4.8); Lymphocytes % (A) 34 %; MCH 31.2 pg (25.0-35.0); MCHC 32.7 g/dL (31.0-37.0); MCV 95.4 fL (80.0-100.0); Mean Platelet Volume 7.5; Monocytes # (A) 0.3 k/uL (0-1.0); Monocytes % (A) 4 %; Neutrophils # (A) 4.5 k/uL (1.3-7.7); Neutrophils % (A) 57 %; Platelet Count 349 k/uL (150-450); RBC 4.24 m/uL (3.80-5.40); RDW 11.7 % (11.5-15.5); WBC 7.9 k/uL (3.8-10.6)
[2023-07-06] MEDS: ACETAMINOPHEN TAB 500 MG TAB PO STA (15:40)
[2023-07-06 15:54] LABS: ALT 45 U/L (4-34); AST 30 U/L (14-36); African American GFR (CKD) >90 (>60 ml/min/1.73 sqM); Alkaline Phosphatase 99 U/L (38-126); Anion Gap 8 mmol/L; Blood Urea Nitrogen 10 mg/dL (7-17); Calcium 9.2 mg/dL (8.4-10.2); Carbon Dioxide 24 mmol/L (22-30); Chloride 109 mmol/L (98-107); Glucose 87 mg/dL (74-99); Non-African American GFR(CKD) >90 (>60 ml/min/1.73 sqM); Potassium 4.1 mmol/L (3.5-5.1); Sodium 141 mmol/L (137-145); Total Bilirubin 0.3 mg/dL (0.2-1.3); Total Protein 6.7 g/dL (6.3-8.2)
[2023-07-06 16:05] LABS: Appearance,Urine Cloudy (Clear); Bacteria,Urine Few /hpf; Bilirubin,Urine Negative (Negative); Blood,Urine Moderate (Negative); Color,Urine Light Yellow; Glucose,Urine (UA) Negative (Negative); Ketones,Urine Negative (Negative); Leukocyte Esterase,Urine Large (Negative); Mucus,Urine Rare /hpf; Nitrite,Urine Negative (Negative); PH, Urine 6.5 (5.0-8.0); Protein,Urine 1+ (Negative); RBC,Urine 52 /hpf (0-5); Specific Gravity,Urine 1.005 (1.001-1.035); Squamous Epithelial Cell,Urine 4 /hpf (0-4); Urobilinogen,Urine <2.0 mg/dL (<2.0); WBC,Urine >182 /hpf (0-5)
[2023-07-06 16:53] VITALS: BP 140/83; PULSE 72; TEMP 98.1
== END 2023-07-06 16:35 | disposition home or self-care (01) ==
LOC: EC 14:17
DX: N12 Tubulo-interstitial nephritis, not specified as acute or chronic (principal); R31.9 Hematuria, unspecified; F12.90 Cannabis use, unspecified, uncomplicated
CPT/HCPCS: 36415; 80053; 81001; 81025; 85025; 87086; 99284

== ENCOUNTER → 2023-07-21 | Outpatient (CLI) | payer BC ==
--- NOTE | 2023-07-25 20:38 | CT ---
EXAMINATION TYPE: CT urogram wo/w con CT DLP: 3837 mGycm, Automated exposure control for dose reduction was used. DATE OF EXAM: 07/21/2023 1:54 PM COMPARISON: . CT abdomen pelvis most recent from CLINICAL INDICATION:Female, 32 years old with history of R10.9,R31.9 HEMATURIA, UNSPECIFIED; [facility], lef t kidney infection, pain, hematuria, x3 weeks TECHNIQUE: Urogram with imaging of the abdomen and pelvis. Coronal and sagittal reformats were performed. 2D and 3D reconstructions are performed to assist visualization of the urinary tract on a separate workstat ion. Contrast used:100 mL of Isovue 300 with IV Contrast, Oral contrast used: None. Study quality: Distal thirds of the ureters are not opacified very well FINDINGS: LOWER CHEST: No significant findings. GENITOURINARY: RIGHT KIDNEY AND URETER: No calculi. No hydronephrosis or hydroureter. No solid renal mass or other l esions. No urothelial lesions: no filling defect, dilation, stricture or wall thickening. LEFT KIDNEY AND URETER: No calculi. No hydronephrosis or hydroureter. No solid renal mass or other le sions. No urothelial lesions: no filling defect, dilation, stricture or wall thickening. The distal thirds of the right and left ureters are not seen well. URINARY BLADDER: Adequately distended. Unremarkable otherwise. REPRODUCTIVE: Unremarkable. ABDOMEN LIVER: Unremarkable. GALLBLADDER AND BILE DUCTS: Unremarkable PANCREAS: Unremarkable. SPLEEN: Unremarkable. ADRENAL GLANDS: Unremarkable. STOMACH AND BOWEL: . No evidence of bowel obstruction. PERITONEUM: No evidence of pneumoperitoneum, free fluid, or adenopathy. VASCULATURE: No evidence of aortic aneurysm. MUSCULOSKELETAL: No acute osseous abnormalities LYMPH NODES: No gross evidence for lymphadenopathy. SOFT TISSUE/ABDOMINAL WALL: Unremarkable 3-D images confirm 2-D findings. IMPRESSION: 1. No evidence of urolithiasis or renal/urothelial neoplasm within limitations of exam.
== END | disposition home or self-care (01) ==
LOC: RADCTMAIN 12:52
PROVIDERS: ATTEND Family Medicine
DX: R10.9 Unspecified abdominal pain (principal); R31.9 Hematuria, unspecified; N12 Tubulo-interstitial nephritis, not specified as acute or chronic
CPT/HCPCS: 74178; 74400; Q9967

== ENCOUNTER → 2023-07-24 | Outpatient (CLI) | payer BC ==
--- NOTE | 2023-07-24 07:47 | MM ---
Reason for Exam: Clinical finding. Baseline mammogram. Indicated Problems: Lump or thickening of the right side (size 10) for 6 Month(s). Patient History: Menarche at age 12. First Full-Term at age 17. Patient has history of breast feeding. Last menstrual period: 07/11/2023 Prior Study Comparison: Patient's first Mammogram. Tissue Density: There are scattered areas of fibroglandular density. Findings: Analyzed By CAD. A few scattered benign round calcifications on both sides. 1.1 cm oval circumscribed mass upper outer quadrant left breast middle depth. The patient reports palpable abnormality along the medial aspect of the right breast. No underlying discrete abnormality is seen. No suspicious microcalcification. Overall Assessment: Incomplete: need additional imaging evaluation, BI-RAD 0 Management: Diagnostic Breast Ultrasound of both breasts. Electronically signed and approved by: Sedrick Kaplan M.D. Radiologist
--- NOTE | 2023-07-24 08:21 | USB ---
Reason for Exam: Clinical finding. Patient History: Menarche at age 12. First Full-Term at age 17. Patient has history of breast feeding. Technique: Method: Targeted. Findings: The upper outer quadrant of the left breast, the medial section of the breast of the right breast, the axilla of both breasts and the retroareolar of both breasts were scanned. Right: Targeted ultrasound medial aspect 12:00 to 6:00 including scanning of the subareolar region and axilla. * At the 2:00 position, 2 cm from the nipple, there is a 4 x 4 by 3 mm cyst with internal 2 mm nodular component, possible cyst with clumped of debris versus complex cyst. Six-month follow-up to reassess. * At the 3:00 position, 4 cm from the nipple, there is a benign 5 mm cyst. * No other solid or cystic lesion or axillary lymphadenopathy. Left: Targeted ultrasound upper outer quadrant 12:00 to 3:00 including scanning of the subareolar region and axilla. * At the 2:00 position, 9 cm from the nipple, there is an oval circumscribed 10 x 9 x 4 mm mass that shows an appearance suggesting a prominent intramammary lymph node, mammographic correlate for which six-month follow-up can be performed. * At the 3:00 position, 5 cm from the nipple, there is a benign 3 mm cyst. * No other solid or cystic lesion or axillary lymphadenopathy. Overall Assessment: Probably benign, BI-RAD 3 Management: Diagnostic Breast Ultrasound of the right breast in 6 months. Diagnostic Mammogram of the left breast in 6 months. A clinical breast exam by your physician is recommended on an annual basis and results should be correlated with mammographic findings. This exam should not preclude additional follow-up of suspicious palpable abnormalities. Results were given to the patient verbally at the time of exam. Electronically signed and approved by: Sedrick Kaplan M.D. Radiologist
== END | disposition home or self-care (01) ==
LOC: RADMAMWWP 07:19
PROVIDERS: ATTEND Family Medicine
DX: N60.01 Solitary cyst of right breast (principal); N60.02 Solitary cyst of left breast; N63.21 Unspecified lump in the left breast, upper outer quadrant; N63.10 Unspecified lump in the right breast, unspecified quadrant; R92.323 Mammographic fibroglandular density, bilateral breasts; R92.1 Mammographic calcification found on diagnostic imaging of breast
CPT/HCPCS: 77062; 77066

== ENCOUNTER → 2024-01-29 | Outpatient (CLI) | payer BC, OTHER ==
--- NOTE | 2024-01-29 09:18 | MM ---
Reason for Exam: Follow-up at short interval from prior study. Last screening mammogram was performed 6 month(s) ago. Patient History: Menarche at age 12. First Full-Term at age 17. Patient has history of breast feeding. Prior Study Comparison: 07/24/2023 Bilateral MG 3D diag mammo w/cad [facility], [facility]. Tissue Density: Left: There are scattered areas of fibroglandular density. Findings: Analyzed By CAD. Within the left upper outer quadrant there is a ovoid mass redemonstrated which may be slightly larger in today's examination. Maximal measurement previously. Ultrasound is advised. Per prior report follow-up ultrasound right breast 2:00 position is also recommended. Overall Assessment: Incomplete: need additional imaging evaluation, BI-RAD 0 Management: Diagnostic Breast Ultrasound of both breasts. . Results were given to the patient verbally at the time of exam. Patient should continue monthly self-breast exams. A clinical breast exam by your physician is recommended on an annual basis. This exam should not preclude additional follow-up of suspicious palpable abnormalities. Note on Lucila scores and lifetime risk: 1. A Lucila score greater than 3% is considered moderate risk. If this is the case, consider specialist referral to assess eligibility for a risk reducing agent. 2. If overall lifetime risk for the development of breast cancer is 20% or higher, the patient may qualify for future screening with alternating mammogram and breast MRI. [facility], , 01/29/2024 9:15 AM. Electronically signed and approved by: Jona Cedeno M.D. Radiologis
--- NOTE | 2024-01-29 09:44 | USB ---
Reason for Exam: Follow-up at short interval from prior study. Patient History: Menarche at age 12. First Full-Term at age 17. Patient has history of breast feeding. Hormonal Contraceptives, from age 17 until age 23. Technique: Method: Targeted. Prior Study Comparison: 07/24/2023 Bilateral MG 3D diag mammo w/cad [facility], [facility]. Findings: The upper outer quadrant of the left breast, the upper inner quadrant of the right breast, the axilla of both breasts and the retroareolar of both breasts were scanned. Right breast: Right 2:00 cyst is unchanged with regards to size and measures 3 x 3 mm. Internal echoes. Improved. No nodule present. Left breast: Left breast 2:00 position there is a lymph node seen which slightly enlarged relative to prior study and measures 1.4 x 8.5 cm versus prior measurement 9 mm. There is also an enlarged left axillary lymph node measuring 3.4 x 1.0 cm. Six-month follow-up is recommended.. Overall Assessment: Probably benign, BI-RAD 3 Management: Diagnostic Breast Ultrasound of the left breast in 6 months. A clinical breast exam by your physician is recommended on an annual basis and results should be correlated with mammographic findings. This exam should not preclude additional follow-up of suspicious palpable abnormalities. Results were given to the patient verbally at the time of exam. [facility], , 01/29/2024 9:43 AM. Electronically signed and approved by: Jona Cedeno M.D. Radiologis
== END | disposition home or self-care (01) ==
LOC: RADMAMWWP 08:48
PROVIDERS: ATTEND Family Medicine
DX: N60.01 Solitary cyst of right breast (principal); R92.322 Mammographic fibroglandular density, left breast
CPT/HCPCS: 77061; 77065